=== PATIENT | male | born 1990 | race Caucasian/White ===

== ENCOUNTER 2019-09-02 16:27 | Inpatient (IN) | payer OTHER ==
[2019-09-02] MEDS ORDERED: SODIUM CHLORIDE 0.9% 1,000 ML IV STA (17:22)
[2019-09-02] MEDS ORDERED: ASPIRIN 81 MG PO STA (17:22)
--- NOTE | 2019-09-02 17:40 | XR ---
EXAMINATION TYPE: XR chest 2V DATE OF EXAM: 09/02/2019 COMPARISON: None HISTORY: 29-year-old male with chest pain TECHNIQUE: PA and lateral views FINDINGS: Heart size appears accentuated due to low lung volumes. Diffuse interstitial densities. No leo cons olidation or pleural effusion. IMPRESSION: Diffuse interstitial densities. Correlate for bronchitis, asthma, or atypical pneumonias.
[2019-09-02 17:54] LABS: Basophils # (A) 0.1 k/uL (0-0.2); Basophils % (A) 1 %; Eosinophils # (A) 0.2 k/uL (0-0.7); Eosinophils % (A) 1 %; HCT 45.4 % (39.0-53.0); HGB 15.9 gm/dL (13.0-17.5); Lymphocytes # (A) 1.3 k/uL (1.0-4.8); Lymphocytes % (A) 9 %; MCH 28.9 pg (25.0-35.0); MCHC 35.2 g/dL (31.0-37.0); MCV 82.3 fL (80.0-100.0); Mean Platelet Volume 7.1; Monocytes # (A) 0.9 k/uL (0-1.0); Monocytes % (A) 6 %; Neutrophils # (A) 12.3 k/uL (1.3-7.7); Neutrophils % (A) 82 %; Platelet Count 251 k/uL (150-450); RBC 5.51 m/uL (4.30-5.90); RDW 12.8 % (11.5-15.5)
--- NOTE | 2019-09-02 18:05 | ED ---
General Adult HPI - General Chief complaint: Chest Pain Stated complaint: JAMAR Time Seen by Provider: 09/02/19 17:00 Source: patient, RN notes reviewed, old records reviewed Mode of arrival: ambulatory Limitations: no limitations - History of Present Illness Initial comments: 29-year-old male patient fully vaccinated no pertinent past medical history presents ED chief complaint of chest pain cough shortness of breath. Patient reports this has been ongoing for 1 week. Patient reports that he recently stopped smoking. 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 Patient put to the pain is worse while lying flat, better while leaning forward. Denies any other complaints. Systemic: Pt denies fatigue, fever/chills, rash. Pt denies weakness, night sweats, weight loss. Neuro: Pt denies headache, visual disturbances, syncope or pre-syncope. HEENT: Pt denies ocular discharge or irritation, otalgia, rhinorrhea, ph aryngitis or notable lymphadenopathy. Cardiopulmonary: Pt denies heart palpitations, dyspnea on exertion. Abdominal/GI: Pt denies abdominal pain, n/v/d. : Pt denies dysuria, burning w/ urination, frequency/urgency. Denies new onset urinary or bowel incontinence. MSK: Pt denies myalgia, loss of strength or function in extremities. Neuro: Pt denies new onset weakness, paresthesias. - Related Data Allergies Allergy/AdvReac Type Severity Reaction Status Date / Time No Known Allergies Allergy Verified 09/02/19 16:39 Review of Systems ROS Statement: Those systems with pertinent positive or pertinent negative responses have been documented in the HPI. ROS Other: All systems not noted in ROS Statement are negative. Past Medical History Past Medical History: No Reported History History of Any Multi-Drug Resistant Organisms: MRSA Date of last positivie culture/infection: 2008 MDRO Source:: thigh Past Surgical History: No Surgical Hx Reported Smoking Status: Former smoker Past Alcohol Use History: None Reported Past Drug Use History: Marijuana General Exam - General Exam Comments Initial Comments: Constitutional: NAD, AOX3, Pt has pleasant affect. HEENT: NC/AT, trachea midline, neck supple, no lymphadenopathy. Posterior pharynx non erythematous, without exudates. External ears appear normal, without discharge. Mucous membranes moist. Eyes PERRLA, EOM intact. There is no scleral icterus. No pallor noted. Cardiopulmonary: RRR, no murmurs, rubs or gallops, no JVD noted. Lungs CTAB in anterior and posterior lr. No peripheral edema. Abdominal exam: Abdomen soft and non-distended. Abdomen non-tender to palpation in all 4 quadrants. Bowel sounds active in LLQ. No hepatosplenomegaly. No ecchymosis Neuro: CN II-XII grossly intact. No nuchal rigidity. No raccon eyes, no wing sign, no hemotympanum. No cervical spinal tenderness. MSK: No posterior calf tenderness bilaterally, homans sign negative bilaterally. Posterior tibialis and radial pulse +2 bilaterally. Sensation intact in upper and lower extremities. Full active ROM in upper and lower extremities, 5/5 stregnth. Limitations: no limitations Course Vital Signs 09/02/19 09/02/19 16:36 17:45 Temperature 99.1 F Pulse Rate 121 H Pulse Rate [ 118 H Shingle Packer ] Respiratory 18 Rate Blood Pressure 122/81 O2 Sat by Pulse 98 Oximetry Medical Decision Making - Medical Decision Making 29-year-old male patient fully vaccinated no pertinent past medical history presents ED chief complaint of chest pain cough shortness of breath. Patient reports this has been ongoing for 1 week. Patient reports that he recently stopped smoking. 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 Patient put to the pain is worse while lying flat, better while leaning forward. Denies any other complaints. Patient vital signs displayed mild tachycardia. Physical exam did not display acute pathology. Laboratory investigation significant for leukocytosis of 15.0 with a left shift. D-dimer mildly elevated. Troponin negative. CTA displayed moderate pericardial effusion measuring 1.2 cm thick. Mild diffuse bronchial wall thickness possible bronchitis or asthma. EKG displayed sinus tachycardia, nonischemic. Patient administered aspirin, Toradol. Patient be admitted for possible pericarditis, echo and cardiology evaluation. Case discussed with Dr. Ruffin. - Lab Data Result diagrams: 09/02/19 17:35 09/02/19 17:35 Lab Results 09/02/19 09/02/19 09/02/19 Range/Units 17:35 17:35 17:35 WBC 15.0 H (3.8-10.6) k/uL RBC 5.51 (4.30-5.90) m/uL Hgb 15.9 (13.0-17.5) gm/dL Hct 45.4 (39.0-53.0) % MCV 82.3 (80.0-100.0) fL MCH 28.9 (25.0-35.0) pg MCHC 35.2 (31.0-37.0) g/dL RDW 12.8 (11.5-15.5) % Plt Count 251 (150-450) k/uL Neutrophils % 82 % Lymphocytes % 9 % Monocytes % 6 % Eosinophils % 1 % Basophils % 1 % Neutrophils # 12.3 H (1.3-7.7) k/uL Lymphocytes # 1.3 (1.0-4.8) k/uL Monocytes # 0.9 (0-1.0) k/uL Eosinophils # 0.2 (0-0.7) k/uL Basophils # 0.1 (0-0.2) k/uL D-Dimer 0.73 H (<0.60) mg/L FEU Sodium 141 (137-145) mmol/L Potassium 4.2 (3.5-5.1) mmol/L Chloride 106 (98-107) mmol/L Carbon Dioxide 23 (22-30) mmol/L Anion Gap 12 mmol/L BUN 13 (9-20) mg/dL Creatinine 0.88 (0.66-1.25) mg/dL Est GFR (CKD-EPI)AfAm >90 (>60 ml/min/1.73 sqM) Est GFR (CKD-EPI)NonAf >90 (>60 ml/min/1.73 sqM) Glucose 97 (74-99) mg/dL Calcium 9.3 (8.4-10.2) mg/dL Magnesium 2.1 (1.6-2.3) mg/dL Total Bilirubin 1.3 (0.2-1.3) mg/dL AST 29 (17-59) U/L ALT 27 (21-72) U/L Alkaline Phosphatase 59 (38-126) U/L Troponin I (0.000-0.034) ng/mL Total Protein 7.5 (6.3-8.2) g/dL Albumin 4.3 (3.5-5.0) g/dL 09/02/ Range/Units 17:35 WBC (3.8-10.6) k/uL RBC (4.30-5.90) m/uL Hgb (13.0-17.5) gm/dL Hct (39.0-53.0) % MCV (80.0-100.0) fL MCH (25.0-35.0) pg MCHC (31.0-37.0) g/dL RDW (11.5-15.5) % Plt Count (150-450) k/uL Neutrophils % % Lymphocytes % % Monocytes % % Eosinophils % % Basophils % % Neutrophils # (1.3-7.7) k/uL Lymphocytes # (1.0-4.8) k/uL Monocytes # (0-1.0) k/uL Eosinophils # (0-0.7) k/uL Basophils # (0-0.2) k/uL D-Dimer (<0.60) mg/L FEU Sodium (137-145) mmol/L Potassium (3.5-5.1) mmol/L Chloride (98-107) mmol/L Carbon Dioxide (22-30) mmol/L Anion Gap mmol/L BUN (9-20) mg/dL Creatinine (0.66-1.25) mg/dL Est GFR (CKD-EPI)AfAm (>60 ml/min/1.73 sqM) Est GFR (CKD-EPI)NonAf (>60 ml/min/1.73 sqM) Glucose (74-99) mg/dL Calcium (8.4-10.2) mg/dL Magnesium (1.6-2.3) mg/dL Total Bilirubin (0.2-1.3) mg/dL AST (17-59) U/L ALT (21-72) U/L Alkaline Phosphatase (38-126) U/L Troponin I <0.012 (0.000-0.034) ng/mL Total Protein (6.3-8.2) g/dL Albumin (3.5-5.0) g/dL - EKG Data -: EKG Interpreted by Me (and Dr. Ruffin) EKG Comments: Ventricular rate 1:15, IL interval 142, QRS 90, QT/QTC 306 as 423. Sinus tachycardia. Read by EKG machine as acute DC. Per evaluation by Dr. Ruffin, appears to be sinus tachycardia, nonischemic. Disposition Clinical Impression: Pericarditis Disposition: ADMITTED IP TO THIS HOSP Condition: Serious Is patient prescribed a controlled substance at d/c from ED?: No Referrals: None,Stated [Primary Care Provider] - 1-2 days
[2019-09-02] MEDS ORDERED: KETOROLAC 30 MG/ML 1 ML VIAL IVP STA (18:07)
[2019-09-02 18:09] LABS: ALT 27 U/L (21-72); AST 29 U/L (17-59); African American GFR (CKD) >90 (>60 ml/min/1.73 sqM); Albumin 4.3 g/dL (3.5-5.0); Alkaline Phosphatase 59 U/L (38-126); Anion Gap 12 mmol/L; Blood Urea Nitrogen 13 mg/dL (9-20); Calcium 9.3 mg/dL (8.4-10.2); Carbon Dioxide 23 mmol/L (22-30); Chloride 106 mmol/L (98-107); Glucose 97 mg/dL (74-99); Magnesium 2.1 mg/dL (1.6-2.3); Non-African American GFR(CKD) >90 (>60 ml/min/1.73 sqM); Potassium 4.2 mmol/L (3.5-5.1); Sodium 141 mmol/L (137-145); Total Bilirubin 1.3 mg/dL (0.2-1.3); Total Protein 7.5 g/dL (6.3-8.2)
--- NOTE | 2019-09-02 18:44 | CT ---
EXAMINATION TYPE: CT chest angio for PE DATE OF EXAM: 09/02/2019 COMPARISON: Radiograph same day HISTORY: 29-year-old male short of breath, Chest pain and elevated d-dimer. TECHNIQUE: Contiguous axial scanning of the chest performed with IV Contrast, patient injected with 7 9ml mL of Isovue 370. Coronal/sagittal MIP reconstructions performed. CT DLP: 567.6 mGycm Automated exposure control for dose reduction was used. FINDINGS: Heart normal size. There is a moderate-sized pericardial effusion measuring 1.2 cm thick. Conventional branching anatomy. Mild breathing motion artifact limiting assessment for pulmonary emboli. No definite pulmonary embolu s is seen. Some scattered nonenlarged mediastinal lymph nodes measure up to 8 mm. No thoracic lymphadenopathy by CT size criteria. Evaluation of the lungs shows mild diffuse bronchial wall thickening and prominent dependent atelecta sis. Additional strandy bibasilar atelectasis. No consolidation or pleural effusion. Visualized upper abdomen shows no gross abnormal mobility. Bones: No osseous destructive process. IMPRESSION: 1. MODERATE PERICARDIAL EFFUSION MEASURING 1.2 CM THICK. CORRELATE FOR POSSIBLE PERICARDITIS. 2. SOME BREATHING MOTION ARTIFACT LIMITING ASSESSMENT FOR PULMONARY EMBOLI. NO DEFINITE PULMONARY EMB OLUS. 3. MILD DIFFUSE BRONCHIAL WALL THICKENING MAY BE SEEN WITH BRONCHITIS OR ASTHMA. PROMINENT DEPENDENT AND BASILAR ATELECTASIS.
[2019-09-02] MEDS ORDERED: AZITHROMYCIN 500 MG in SODIUM CHLORIDE 0.9% 250 ML IVPB STA (19:04)
[2019-09-02] MEDS ORDERED: NITROGLYCERIN SL TABS 0.4 MG TAB SUBLINGUAL PRN (19:06)
--- NOTE | 2019-09-02 21:43 | P.HPIM ---
History of Present Illness H&P Date: 09/02/19 Patient is a 29-year-old male with a past medical history of tobacco abuse and allergic rhinitis who presented to the ED with complaints of gradually worsening substernal and left-sided chest pain with shortness of breath. The patient reports that his symptoms started roughly a week ago when he began having sharp and pressure-like chest discomfort throughout his left side. He subsequently developed decreased exercise tolerance and shortness of breath. The pain is pleuritic, 7/10, non-radiating, worsened significantly with laying flat. He also reported palpitations. Denied nausea, vomiting, dizziness, or diarrhea. He reported that he has had episodes of pleuritic chest discomfort twice before, which were attributed to costochondritis and were self-limiting. He notes that this pain is more severe. He underwent an extensive evaluation in the ED. Upon presentation, he was noted to be tachycardic to 121. A d-dimer was elevated to 0.73 for which the patient underwent a chest CTA which revealed moderate pericardial effusion measuring 1.2 cm thick with no definitive PE noted. EKG revealed sinus tachycardia @ 115 bpm w/ ST elevations in the precordial leads. Laboratory evaluation revealed a WBC count of 15.0, hemoglobin 15.9, platelets 241, sodium 141, potassium 4.2, BUN 13, creatinine 0.8, troponin less than 0.012, with influenza negative. The patient is being admitted to the medicine service for further management of acute pericarditis. Review of Systems Pertinent positives and negatives as discussed in HPI, a complete review of systems was performed and all other systems are negative. Past Medical History Past Medical History: No Reported History History of Any Multi-Drug Resistant Organisms: MRSA Date of last positivie culture/infection: 2008 MDRO Source:: thigh Past Surgical History: No Surgical Hx Reported Past Anesthesia/Blood Transfusion Reactions: No Reported Reaction Past Psychological History: No Psychological Hx Reported Smoking Status: Former smoker Past Alcohol Use History: None Reported Past Drug Use History: Marijuana - Past Family History Father Family Medical History: Eye Disorder Mother Family Medical History: Hypertension Medications and Allergies Home Medications Medication Instructions Recorded Confirmed Type Albuterol Inhaler [Ventolin Hfa 1 - 2 puff INHALATION RT-Q6H PRN 09/02/19 09/02/19 History Inhaler] Fluticasone Nasal [place] [Flonase 1 spr EA NOSTRIL DAILY PRN 09/02/19 09/02/19 History Nasal [place]] Ibuprofen [Motrin] 600 mg PO Q6HR PRN 09/02/19 09/02/19 History Allergies Allergy/AdvReac Type Severity Reaction Status Date / Time No Known Allergies Allergy Verified 09/02/19 19:48 Physical Exam Vitals: Vital Signs Temp Pulse Pulse Resp BP BP Pulse Ox 09/02/19 20:47 97.2 F L 112 H 20 138/93 97 09/02/19 20:02 98.7 F 107 H 23 139/82 98 09/02/19 19:00 97.8 F 110 H 22 125/84 98 09/02/19 17:45 118 H 09/02/19 16:36 99.1 F 121 H 18 122/81 98 Intake and Output 09/02/19 09/02/19 09/02/19 06:59 14:59 22:59 Intake Total 250 Balance 250 Intake: Intake, IV Titration 250 Amount Azithromycin 500 mg In 250 Sodium Chloride 0.9% 250 ml @ 250 mls/hr IVPB ONCE STA Rx#:[id number] Other: Weight 102.058 kg General: non toxic, no distress, appears at stated age, obese Derm: no unusual rashes/lesions no unusual ecchymoses, warm, dry Head: atraumatic, normocephalic, symmetric Eyes: EOMI, no lid lag, anicteric sclera, pupils equal round reactive to light ENT: Nose and ears atraumatic, no thrush, no pharyngeal erythema Neck: No thyromegaly, no cervical lymphadenopathy, trachea midline, supple Mouth: no lip lesion, mucus membranes moist Cardiovascular: S1S2 reg, no murmur, positive posterior tibial pulse bilateral, no edema, capillary refill less than 2 seconds, no JVD noted Lungs: CTA bilateral, no rhonchi, no rales , no accessory muscle use, no chest wall tenderness noted Abdominal: soft, nontender to palpation, no guarding, no appreciable organomega ly, normal bowel sounds Ext: no gross muscle atrophy, muscle strength 5 out of 5 in all 4 extremities grossly, no contractures, Neuro: CN II-XI grossly intact, light touch intact all 4 extremities, finger to nose within normal limits, Psych: Alert, oriented, appropriate affect Results CBC & Chem 7: 09/02/19 17:35 11/23/19 17:35 Labs: Abnormal Lab Results - Last 24 Hours (Table) 09/02/19 09/02/19 Range/Units 17:35 17:35 WBC 15.0 H (3.8-10.6) k/uL Neutrophils # 12.3 H (1.3-7.7) k/uL D-Dimer 0.73 H (<0.60) mg/L FEU Thrombosis Risk Factor Assmnt - Choose All That Apply Any of the Below Risk Factors Present?: No Assessment and Plan Plan: Acute pericarditis, likely viral -Patient tachycardic though continues to have good BP. No JVD or LE edema noted. Will monitor for now. -Cardiology aware of patient -Initiate Motrin 600 mg TID and Colchicine 0.6 mg bid -C/w cardiac monitoring -Cardiology consulted -Echocardiogram -Repeat CXR at midnight Tobacco abuse -Advised on importance of cessation DVT prophylaxis -IPCDs The patient is admitted with an anticipated more than 2 midnight stay for evaluation of acute pericarditis CODE STATUS: Full Code Discussed with: Patient Anticipated discharge date: 2-[address]: Home A total of 35 minutes was spent on the care of this complex patient more than 50% of the time was spent in counseling and care coordination.
[2019-09-02] MEDS: PANTOPRAZOLE 40 MG TABLET PO SCH (22:17)
[2019-09-02] MEDS: IBUPROFEN 600 MG TAB PO SCH (22:17)
[2019-09-02] MEDS: COLCHICINE 0.6 MG EACH PO SCH (22:18)
--- NOTE | 2019-09-03 01:30 | XR ---
EXAMINATION TYPE: XR chest 2V DATE OF EXAM: 09/03/2019 COMPARISON: Yesterday HISTORY: Pericardial effusion TECHNIQUE: Frontal and lateral views of the chest are obtained. FINDINGS: Heart and mediastinum appear normal. Lungs are clear. Diaphragm is normal. There are chest leads. Bony thorax is intact. IMPRESSION: Normal chest. No adverse change compared to yesterday. No significant increase in the ca rdiac silhouette.
[2019-09-03 06:17] LABS: Cholesterol 135 mg/dL (<200); HDL Cholesterol 29 mg/dL (40-60); LDL Cholesterol,Calculated 93 mg/dL (0-99); Triglycerides 63 mg/dL (<150)
[2019-09-03] MEDS: PANTOPRAZOLE 40 MG TABLET PO SCH (06:45)
[2019-09-03] MEDS: IBUPROFEN 600 MG TAB PO SCH ×3 (06:45→17:21)
[2019-09-03] MEDS: COLCHICINE 0.6 MG EACH PO SCH ×2 (08:32→21:00)
--- NOTE | 2019-09-03 08:50 | P.CRDCN ---
History of Present Illness Consult date: 09/03/19 Requesting physician: Radha Marquez Reason for Consult (text): pericarditis, pericardial effusion, tachycardia Chief complaint: shortness of breath, chest pain History of present illness: This is a pleasant 29-year-old gentleman with no significant past medical history. He does have a history of smoking for which he recently quit. He drinks very rarely and smokes marijuana a few times per week. He does have a history of MRSA in his left thigh following a spider bite while in [place] 2008. He presented to the emergency department with complaints of shortness of breath and chest discomfort that was worse with lying down and increased chest discomfort with attempting to take a deep breath. He is apparently had these symptoms previously which time following an episode of trying to quit smoking and initial presentation was told he had costochondritis. He denies any recent nausea, vomiting or diarrhea. He's had no fever, chills or fatigue. He has had a cough for which she attributes to postnasal drip but was quite significant and caused him to call in sick to work. Labs upon admission showed an elevated d- dimer and a white blood cell count 15,000 with negative troponins. Chest x-ray showed diffuse interstitial densities, correlate for bronchitis, asthma, or atypical pneumonia. Because of elevated d-dimer patient underwent CTA of the chest which revealed moderate pericardial effusion measuring 1.2 cm thick, correlate for possible pericarditis, no definite pulmonary embolism, and mild diffuse bronchial wall thickening which may be seen with bronchitis or asthma, p rominent dependent and basilar atelectasis. EKG on admission showed sinus tachycardia with minimal ST elevations. Upon examination, patient is resting comfortably in bed. His symptoms have improved. He feels much less short of breath and denies current complaints of chest discomfort. He is currently on colchicine 0.6 mg by mouth twice a day, ibuprofen 600 mg by mouth 3 times a day and Protonix 40 mg by mouth daily. Past Medical History Past Medical History: No Reported History History of Any Multi-Drug Resistant Organisms: MRSA Date of last positivie culture/infection: 2008 MDRO Source:: thigh Past Surgical History: No Surgical Hx Reported Past Anesthesia/Blood Transfusion Reactions: No Reported Reaction Past Psychological History: No Psychological Hx Reported Smoking Status: Former smoker Past Alcohol Use History: None Reported Past Drug Use History: Marijuana - Past Family History Father Family Medical History: Eye Disorder Mother Family Medical History: Hypertension Medications and Allergies Home Medications Medication Instructions Recorded Confirmed Type Albuterol Inhaler [Ventolin Hfa 1 - 2 puff INHALATION RT-Q6H PRN 09/02/19 09/02/19 History Inhaler] Fluticasone Nasal [place] [Flonase 1 spr EA NOSTRIL DAILY PRN 09/02/19 09/02/19 History Nasal [place]] Ibuprofen [Motrin] 600 mg PO Q6HR PRN 09/02/19 09/02/19 History Allergies Allergy/AdvReac Type Severity Reaction Status Date / Time No Known Allergies Allergy Verified 09/02/19 19:48 Physical Exam Vitals: Vital Signs Temp Pulse Pulse Resp BP BP Pulse Ox 09/03/19 04:00 98.0 F 88 18 108/69 95 09/03/19 00:00 97.7 F 122 H 24 120/72 95 09/02/19 20:47 97.2 F L 112 H 20 122/88 97 09/02/19 20:02 98.7 F 107 H 23 139/82 98 09/02/19 20:00 97.2 F L 118 H 22 138/93 97 09/02/19 19:06 95 09/02/19 19:00 97.8 F 110 H 22 125/84 98 09/02/19 17:45 118 H 09/02/19 16:36 99.1 F 121 H 18 122/81 98 Intake and Output 09/02/19 09/03/19 09/03/19 22:59 06:59 14:59 Intake Total 250 Balance 250 Intake: Intake, IV Titration 250 Amount Azithromycin 500 mg In 250 Sodium Chloride 0.9% 250 ml @ 250 mls/hr IVPB ONCE STA Rx#:[id number] Other: # Voids 1 Weight 102.058 kg 104.3 kg PHYSICAL EXAMINATION: HEENT: Head is atraumatic, normocephalic. Pupils equal, round. Neck is supple. There is no elevated jugular venous pressure. HEART EXAMINATION: Heart sounds regular, S1 and S2 normal. No murmur or gallop heard. Tachycardia noted. CHEST EXAMINATION: Lungs are clear to auscultation and precussion. No chest wall tenderness is noted on palpation or with deep breathing. ABDOMEN: Soft, nontender. Bowel sounds are heard. No organomegaly noted. EXTREMITIES: 2+ peripheral pulses with no evidence of peripheral edema and no calf tenderness noted. NEUROLOGIC patient is awake, alert and oriented x3. . Results 09/02/19 17:35 09/02/19 17:35 Cardiac Enzymes 09/02/19 09/02/19 09/02/19 Range/Units 17:35 17:35 23:14 AST 29 (17-59) U/L Troponin I <0.012 <0.012 (0.000-0.034) ng/mL 09/03/19 Range/Units 05:33 AST (17-59) U/L Troponin I <0.012 (0.000-0.034) ng/mL Lipids 09/03/19 Range/Units 05:33 Triglycerides 63 (<150) mg/dL Cholesterol 135 (<200) mg/dL HDL Cholesterol 29 L (40-60) mg/dL CBC 09/02/19 Range/Units 17:35 WBC 15.0 H (3.8-10.6) k/uL RBC 5.51 (4.30-5.90) m/uL Hgb 15.9 (13.0-17.5) gm/dL Hct 45.4 (39.0-53.0) % Plt Count 251 (150-450) k/uL Comprehensive Metabolic Panel 09/02/19 Range/Units 17:35 Sodium 141 (137-145) mmol/L Potassium 4.2 (3.5-5.1) mmol/L Chloride 106 (98-107) mmol/L Carbon Dioxide 23 (22-30) mmol/L BUN 13 (9-20) mg/dL Creatinine 0.88 (0.66-1.25) mg/dL Glucose 97 (74-99) mg/dL Calcium 9.3 (8.4-10.2) mg/dL AST 29 (17-59) U/L ALT 27 (21-72) U/L Alkaline Phosphatase 59 (38-126) U/L Total Protein 7.5 (6.3-8.2) g/dL Albumin 4.3 (3.5-5.0) g/dL Current Medications Generic Name Dose Route Start Last Admin Trade Name Freq PRN Reason Stop Dose Admin Colchicine 0.6 mg 09/02/19 21:45 09/02/19 22:18 Colcrys PO 0.6 mg BID VIOLETA Administration Ibuprofen 600 mg 09/02/19 23:00 09/03/19 06:45 Motrin PO 600 mg TID-W/MEALS VIOLETA Administration Nitroglycerin 0.4 mg 09/02/19 19:06 Nitrostat SUBLINGUAL Q5M PRN Chest Pain Pantoprazole Sodium 40 mg 09/02/19 21:45 09/03/19 06:45 Protonix PO 40 mg [id number] VIOLETA Administration Intake and Output 09/02/19 09/03/19 09/03/19 22:59 06:59 14:59 Intake Total 250 Balance 250 Intake: Intake, IV Titration 250 Amount Azithromycin 500 mg In 250 Sodium Chloride 0.9% 250 ml @ 250 mls/hr IVPB ONCE STA Rx#:[id number] Other: # Voids 1 Weight 102.058 kg 104.3 kg 09/02/19 17:35 09/02/19 17:35 Assessment and Plan Assessment: #1 acute pericarditis, viral #2 nicotine dependence, currently working on quitting #3 marijuana use Plan: From cardiology's perspective, obtain a 2-D echo with Doppler. We will obtain a sed rate. Repeat EKG in the morning. Continue colchicine and ibuprofen. We will continue to follow the patient and provide further recommendations accordingly. [employer] note has been reviewed, I agree with a documented findings and plan of care. Patient was seen and examined.
--- NOTE | 2019-09-03 10:06 | P.PN ---
Subjective Progress Note Date: 09/03/19 Principal diagnosis: Pericarditis Patient was seen and examined. No acute events overnight. Patient reports chest pain that is well-controlled with current pain medication. He denies any shortness of breath or palpitations. Wonders if quitting smoking is associated with this condition. No nausea or vomiting. No fever or chills. Objective - Vital Signs Vital signs: Vital Signs Temp 98.4 F 09/03/19 08:00 Pulse 102 H 09/03/19 08:00 Resp 18 09/03/19 08:00 BP 110/83 09/03/19 08:00 Pulse Ox 96 09/03/19 08:00 Intake & Output 09/02/19 09/03/19 09/03/19 18:59 06:59 18:59 Intake Total 250 360 Balance 250 360 Weight 102.058 kg 104.3 kg Intake: Intake, IV Titration 250 Amount Azithromycin 500 mg In 250 Sodium Chloride 0.9% 250 ml @ 250 mls/hr IVPB ONCE STA Rx#:[id number] Oral 360 Other: Voiding Method Toilet # Voids 1 - Exam General: [non toxic], [no distress], [appears at stated age] Derm: [warm], [dry] Head: [atraumatic], [normocephalic], [symmetric] Eyes: [EOMI], [no lid lag], [anicteric sclera] Mouth: [no lip lesion], [mucus membranes moist] Cardiovascular: [S1S2 reg], [tachycardia], [positive DP pulse bilateral], Lungs: [CTA bilateral], [no rhonchi, no rales] , [no accessory muscle use] Abdominal: [soft], [ nontender to palpation], [no guarding], [no appreciable organomegaly] Ext: [no gross muscle atrophy], [no edema], [no contractures] Neuro: [ CN II-XI grossly intact], [no focal neuro deficits] Psych: [Alert], [oriented], [appropriate affect] - Labs CBC & Chem 7: 09/02/19 17:35 09/02/19 17:35 Labs: Abnormal Lab Results - Last 24 Hours (Table) 09/02/19 09/02/19 09/03/19 Range/Units 17:35 17:35 05:33 WBC 15.0 H (3.8-10.6) k/uL Neutrophils # 12.3 H (1.3-7.7) k/uL ESR (0-15) mm/hr D-Dimer 0.73 H (<0.60) mg/L FEU HDL Cholesterol 29 L (40-60) mg/dL 09/03/19 Range/Units 05:33 WBC (3.8-10.6) k/uL Neutrophils # (1.3-7.7) k/uL ESR 17 H (0-15) mm/hr D-Dimer (<0.60) mg/L FEU HDL Cholesterol (40-60) mg/dL Assessment and Plan Assessment: Acute pericarditis likely viral with pericardial effusion Tobacco abuse Patient is hemodynamically stable at this time. EKG showing diffuse ST wave elevation, ACS ruled out. Influenza negative. Plans: Ibuprofen, colchicine or Toradol as needed for chest pain. Telemetry monitoring. Follow-up echocardiogram. Follow-up cardiology consultation. Plans: Advised to quit. [Patient admitted for pericarditis with pericardial effusion. Echocardiogram ordered. Cardiology onboard. Likely DC 1-2 days.]
[2019-09-04 03:27] VITALS: TEMP 98.4
[2019-09-04] MEDS: PANTOPRAZOLE 40 MG TABLET PO SCH (06:44)
[2019-09-04] MEDS: IBUPROFEN 600 MG TAB PO SCH (06:44)
[2019-09-04 06:48] LABS: African American GFR (CKD) >90 (>60 ml/min/1.73 sqM); Anion Gap 9 mmol/L; Blood Urea Nitrogen 13 mg/dL (9-20); Carbon Dioxide 25 mmol/L (22-30); Chloride 110 mmol/L (98-107); Glucose 108 mg/dL (74-99); Non-African American GFR(CKD) >90 (>60 ml/min/1.73 sqM); Potassium 4.4 mmol/L (3.5-5.1); Sodium 144 mmol/L (137-145)
[2019-09-04] MEDS: COLCHICINE 0.6 MG EACH PO SCH (08:19)
[2019-09-04 08:21] VITALS: BP 123/67; PULSE 84; RESP 16
--- NOTE | 2019-09-04 09:44 | PN ---
PROGRESS NOTE Mr. Mccormack is a 29-year-old male who presented with symptoms of chest discomfort, highly suggestive of pericarditis. He is feeling much better at this time. His breathing is better. His chest discomfort is better. He denies any dizziness or palpitation. He continues to be in sinus mechanism. He continues to be on colchicine 0.6 mg twice a day, ibuprofen 600 mg 3 times a day and Protonix. PHYSICAL EXAMINATION: Blood pressure 123/60 with the heart rate in the 80s. LUNGS: Clear. HEART: Regular rate and rhythm. S1, S2. No S3. No rub appreciated. ABDOMEN: Soft, nontender. EXTREMITIES: No edema. LAB DATA: Labs data revealed a Sed rate of 17, BUN and creatinine 13 and 0.8. IMPRESSION: 1. Chest discomfort, probably pericarditis. 2. History of smoking. RECOMMENDATION: We will review the results of the echo. If there is no significant abnormality, I would expect he should be able to be discharged home today and followed as an outpatient. MMODL / IJN: [id number] /
--- NOTE | 2019-09-04 10:12 | P.DS ---
Providers Date of admission: 09/02/19 19:14 Expected date of discharge: 09/04/19 Attending physician: Radha Marquez MD Consults: 09/02/19 19:06 Consult Physician Urgent Consulting Provider: Min Gutierrez Consult Reason/Comments: pericarditis, pericardial effusion, tachycardia Do you want consulting provider notified?: Yes, Notify in am Primary care physician: Stated None Hospital Course: Patient is a 29-year-old male with a past medical history of tobacco abuse and allergic rhinitis who presented to the ED with complaints of gradually worsening substernal and left-sided chest pain with shortness of breath. The patient reports that his symptoms started roughly a week ago when he began having sharp and pressure-like chest discomfort throughout his left side. Upon presentation, he was noted to be tachycardic to 121. A d-dimer was elevated to 0.73 for which the patient underwent a chest CTA which revealed moderate pericardial effusion measuring 1.2 cm thick with no definitive PE noted. EKG revealed sinus tachycardia @ 115 bpm w/ ST elevations in the precordial leads. Laboratory evaluation revealed a WBC count of 15.0, hemoglobin 15.9, platelets 241, sodium 141, potassium 4.2, BUN 13, creatinine 0.8, troponin less than 0.012, with influenza negative. The patient is being admitted to the medicine service for further management of acute pericarditis. Patient was hemodynamically stable throughout his hospitalization. Serial troponins were trended and ACS was ruled out. Patient was started on ibuprofen, colchicine and given Toradol as needed for pain. He was placed on telemetry monitoring. Echocardiogram was ordered and pending at the time of this note. Cardiology was consulted and recommended follow-up of echocardiogram. Patient was seen and examined. No acute events overnight. Patient reports chest pain that is well-controlled with current pain medications. He denies any chest pain, shortness of breath or palpitations. No nausea or vomiting. No fever or chills. Looking forward to going home. Motivated to quit smoking. General: [non toxic], [no distress], [appears at stated age] Derm: [warm], [dry] Head: [atraumatic], [normocephalic], [symmetric] Eyes: [EOMI], [no lid lag], [anicteric sclera] Mouth: [no lip lesion], [mucus membranes moist] Cardiovascular: [S1S2 reg], [tachycardia], [positive DP pulse bilateral], Lungs: [CTA bilateral], [no rhonchi, no rales] , [no accessory muscle use] Abdominal: [soft], [ nontender to palpation], [no guarding], [no appreciable organomegaly] Ext: [no gross muscle atrophy], [no edema], [no contractures] Neuro: [ CN II-XI grossly intact], [no focal neuro deficits] Psych: [Alert], [oriented], [appropriate affect] Acute pericarditis likely viral with pericardial effusion Tobacco abuse Patient is hemodynamically stable at this time. EKG showing diffuse ST wave elevation, ACS ruled out. Influenza negative. Plans: Ibuprofen, colchicine or Toradol as needed for chest pain. Telemetry monitoring. Follow-up echocardiogram. Follow-up cardiology consultation. Plans: Advised to quit. [Patient admitted for pericarditis with pericardial effusion. Echocardiogram ordered. Cardiology onboard. Likely DC after echocardiogram results come back with cardiology clearance.] Pertinent Studies: Chest x-ray, chest CTA, echocardiogram Patient Condition at Discharge: Stable Plan - Discharge Summary New Discharge Prescriptions: New Colchicine [Colcrys] 0.6 mg PO BID #180 each Continue Fluticasone Nasal [place] [Flonase Nasal [place]] 1 spr EA NOSTRIL DAILY PRN PRN Reason: Allergy Symptoms Albuterol Inhaler [Ventolin Hfa Inhaler] 1 - 2 puff INHALATION RT-Q6H PRN PRN Reason: Shortness Of Breath Ibuprofen [Motrin] 600 mg PO Q6HR PRN #45 tab PRN Reason: Pain Discharge Medication List Albuterol Inhaler [Ventolin Hfa Inhaler] 1 - 2 puff INHALATION RT-Q6H PRN 09/02/19 [History] Fluticasone Nasal [place] [Flonase Nasal [place]] 1 spr EA NOSTRIL DAILY PRN 09/02/19 [History] Colchicine [Colcrys] 0.6 mg PO BID #180 each 09/04/19 [Rx] Ibuprofen [Motrin] 600 mg PO Q6HR PRN #45 tab 09/04/19 [Rx] Follow up Appointment(s)/Referral(s): None,Stated [Primary Care Provider] - 1-2 days Samman,Bashar, MD [STAFF PHYSICIAN] - 1 Week Patient Instructions/Handouts: How to Stop Smoking (GEN) Activity/Diet/Wound Care/Special Instructions: Diet: Regular Follow-up PCP within 3 days of discharge. Follow-up with cardiology within 1 week of discharge. Take all medications as advised. Discharge Disposition: HOME SELF-CARE
--- NOTE | 2019-09-04 10:22 | ECHOF ---
Referral Reason:percardial effusion MEASUREMENTS -------- HEIGHT: 182.9 cm WEIGHT: 104.3 kg BP: 112/74 RVIDd: 3.6 cm (< 3.3) IVSd: 1.6 cm (0.6 - 1.1) LVIDd: 4.1 cm (3.9 - 5.3) LVPWd: 1.5 cm (0.6 - 1.1) IVSs: 1.6 cm LVIDs: 3.4 cm LVPWs: 1.3 cm LAESV Index (A-L): 17.00 ml/m Ao Diam: 4.0 cm (2.0 - 3.7) AV Cusp: 1.9 cm (1.5 - 2.6) LA Diam: 3.6 cm (2.7 - 3.8) MV EXCURSION: 14.924 mm (> 18.000) MV EF SLOPE: 106 mm/s (70 - 150) EPSS: 0.6 cm MV E [place]: 0.59 m/s MV DecT: 163 ms MV A [place]: 0.54 m/s MV E/A Ratio: 1.09 RAP: 5.00 mmHg RVSP: 14.63 mmHg TAPSE: 23.90 mm FINDINGS -------- Sinus rhythm. This was a technically good study. LV size, wall thickness and systolic function are normal, with an EF greater than 55%. The left rosmery tricular size is normal. The diastolic filling pattern is normal for the age of the patient 6.98. The right ventricle is normal in size. The left atrial size is normal. Normal LA size by volume 22+/-6 ml/m2. The right atrial size is normal. The aortic valve is trileaflet, and appears structurally normal. No aortic stenosis or regurgitation. Mild mitral regurgitation is present. Mild tricuspid regurgitation present. Right ventricular systolic pressure is normal at < 35 mmHg. There is no evidence of pulmonary hypertension. There is no pulmonic regurgitation present. The aortic root size is normal. There is a small, generalized pericardial effusion present. CONCLUSIONS -------- 1. Sinus rhythm. 2. This was a technically good study. 3. LV size, wall thickness and systolic function are normal, with an EF greater than 55%. 4. The left ventricular size is normal. 5. The diastolic filling pattern is normal for the age of the patient 6.98 6. The right ventricle is normal in size. 7. The left atrial size is normal. 8. Normal LA size by volume 22+/-6 ml/m2. 9. The right atrial size is normal. 10. The aortic valve is trileaflet, and appears structurally normal. No aortic stenosis or regurgitat ion. 11. Mild mitral regurgitation is present. 12. Mild tricuspid regurgitation present. 13. Right ventricular systolic pressure is normal at < 35 mmHg. 14. There is no evidence of pulmonary hypertension. 15. There is no pulmonic regurgitation present. 16. The aortic root size is normal. 17. There is a small, generalized pericardial effusion present. AUDIENCE COORDINATOR: Mary Lundy RDCS
== END 2019-09-04 12:31 | disposition home or self-care (01) | DRG 316 ==
LOC: EC 16:27 → 3SCARD 19:14
PROVIDERS: ADMIT Internal Medicine; ATTEND Internal Medicine
DX: I30.1 Infective pericarditis (principal); M94.0 Chondrocostal junction syndrome [Tietze]; J30.9 Allergic rhinitis, unspecified; D72.829 Elevated white blood cell count, unspecified; F17.200 Nicotine dependence, unspecified, uncomplicated; Z71.6 Tobacco abuse counseling; Z86.14 Personal history of Methicillin resistant Staphylococcus aureus infection; Z82.49 Family history of ischemic heart disease and other diseases of the circulatory system; Z83.518 Family history of other specified eye disorder
CPT/HCPCS: 36415; 71046; 71275; 80048; 80053; 80061; 83605; 83735; 84484; 85025; 85379; 85652; 87502; 93005; 93306; 96361; 96365; 96375; 99285

== ENCOUNTER 2019-09-13 23:09 | Emergency (ER) | payer OTHER ==
--- NOTE | 2019-09-14 00:09 | XR ---
EXAMINATION TYPE: XR chest 2V DATE OF EXAM: 09/14/2019 COMPARISON: 09/03/2019 HISTORY: Chest pain TECHNIQUE: 2 views FINDINGS: Heart and mediastinum are normal. Lungs are clear. Diaphragm is normal. There are chest dharmesh ds. Bony thorax is intact. IMPRESSION: Normal chest. No change.
[2019-09-14 00:34] VITALS: BP 103/71; PULSE 88; RESP 18; TEMP 98.2
--- NOTE | 2019-09-14 00:39 | ED ---
General Adult HPI - General Chief complaint: Shortness of Breath Stated complaint: Sweating, Heart issues Time Seen by Provider: 09/13/19 23:21 Source: patient Mode of arrival: ambulatory Limitations: no limitations - History of Present Illness Initial comments: 29-year-old male patient with recent diagnosis of pericarditis presents to the emergency department today for evaluation of fever and elevated heart rate. Patient states he is feeling fatigued throughout the day. Checked his temperature this evening was 102.5F. Patient states that they did check his pulse ox and noticed his heart rate was between 130 and 140. Patient did take his prescribed colchicine and ibuprofen approximately two hours prior to arrival here. Patient states that once his fever broke he was experiencing sweating. He denies any dizziness, weakness, shortness of breath. States he has been having some central chest pressure since his diagnosis of pericarditis. They believe his pericarditis was related to a viral illness. Patient denies any recent rash, abdominal pain, nausea, vomiting, diarrhea, constipation, back pain, numbness, tingling, hematuria, dysuria, urinary urgency, urinary frequency, headache, visual changes, or any other complaints. - Related Data Home Medications Medication Instructions Recorded Confirmed Albuterol Inhaler [Ventolin Hfa 1 - 2 puff INHALATION RT-Q6H PRN 09/02/19 09/02/19 Inhaler] Fluticasone Nasal [place] [Flonase 1 spr EA NOSTRIL DAILY PRN 09/02/19 09/02/19 Nasal [place]] Previous Rx's Medication Instructions Recorded Colchicine [Colcrys] 0.6 mg PO BID #180 each 09/04/19 Ibuprofen 600 mg PO TID #42 tablet 09/04/19 Allergies Allergy/AdvReac Type Severity Reaction Status Date / Time No Known Allergies Allergy Verified 09/13/19 23:19 Review of Systems ROS Statement: Those systems with pertinent positive or pertinent negative responses have been documented in the HPI. ROS Other: All systems not noted in ROS Statement are negative. Past Medical History Past Medical History: No Reported History Additional Past Medical History / Comment(s): pericarditis History of Any Multi-Drug Resistant Organisms: MRSA Date of last positivie culture/infection: 2008 MDRO Source:: thigh Past Surgical History: No Surgical Hx Reported Past Anesthesia/Blood Transfusion Reactions: No Reported Reaction Past Psychological History: No Psychological Hx Reported Smoking Status: Former smoker Past Alcohol Use History: None Reported Past Drug Use History: Marijuana - Past Family History Father Family Medical History: Eye Disorder Mother Family Medical History: Hypertension General Exam Limitations: no limitations General appearance: alert, in no apparent distress, other (This is a well- developed, well-nourished this is a well-developed, well-nourished adult male patient in no acute distress. Vital signs upon presentation are temperature 98.0F, pulse 87, respirations 20, pulse ox 100% on room air.) Eye exam: Present: normal appearance, PERRL, EOMI. Absent: scleral icterus, conjunctival injection, periorbital swelling ENT exam: Present: normal exam, normal oropharynx, mucous membranes moist Respiratory exam: Present: normal lung sounds bilaterally. Absent: respiratory distress, wheezes, rales, rhonchi, stridor Cardiovascular Exam: Present: regular rate, normal rhythm, normal heart sounds. Absent: systolic murmur, diastolic murmur, rubs, gallop, clicks GI/Abdominal exam: Present: soft, normal bowel sounds. Absent: distended, tenderness, guarding, rebound, rigid Neurological exam: Present: alert, oriented X3, CN II-XII intact Psychiatric exam: Present: normal affect, normal mood Skin exam: Present: warm, dry, intact, normal color. Absent: rash Course Vital Signs 09/13/19 09/14/19 23:13 00:32 Temperature 98.0 F 98.2 F Pulse Rate 87 88 Respiratory 20 18 Rate Blood Pressure 103/71 O2 Sat by Pulse 100 97 Oximetry EKG Findings - EKG Comments: EKG Findings:: EKG obtained at 2350 shows normal sinus rhythm with a ventricular rate of 92, SC interval 158, QRS duration 86, QT 350, QTC 432. No evidence of ST elevation or depression. Medical Decision Making - Medical Decision Making 29-year-old male patient presented to the emergency department today for evaluation of fever and elevated heart rate. Physical examination is unremarkable. Lungs are clear to auscultation with good air movement. Vital signs are reassuring with normal heart rate and normal oxygen saturation. EKG showed normal sinus rhythm with no ectopy. Patient was placed in a meter/relay craftsman, this was reviewed and showed no abnormal rhythms. I did discuss findings and results with the patient. He'll be discharged at this time to follow up with his primary care physician for recheck in 1-2 days. Return parameters discussed in detail. He verbalizes understanding and agrees with this plan. - Radiology Data Radiology results: report reviewed, image reviewed Two-view x-ray of the chest is obtained. Report was reviewed in its entirety. Impression by Dr. Carballo shows normal chest. No change. Disposition Clinical Impression: Fever Disposition: HOME SELF-CARE Condition: Good Instructions (If sedation given, give patient instructions): Fever in Adults (ED) Additional Instructions: Follow-up with your primary care physician for recheck in 1-2 days. Return to the emergency department immediately if her symptoms get worse or if you develop any new symptoms. Is patient prescribed a controlled substance at d/c from ED?: No Referrals: None,Stated [Primary Care Provider] - 1-2 days Time of Disposition: 00:39
== END 2019-09-14 01:03 | disposition home or self-care (01) ==
LOC: EC 23:09
DX: R50.9 Fever, unspecified (principal); R00.0 Tachycardia, unspecified; I31.9 Disease of pericardium, unspecified; Z87.891 Personal history of nicotine dependence; Z86.14 Personal history of Methicillin resistant Staphylococcus aureus infection
CPT/HCPCS: 71046; 93005; 99284